=== PATIENT | female | born 1965 | race Caucasian/White ===

== ENCOUNTER 2016-02-26 12:47 | Emergency (ER) | payer OTHER ==
--- NOTE | 2016-02-26 13:56 | DIAGNOSTIC IMAGING REPORT ---
PROCEDURE: XR KNEE 4 VIEWS - RIGHT INDICATION: TRAUMA/INJURY TECHNIQUE: Four views. COMPARISON: None. FINDINGS: Minor spurring of the patellofemoral compartment. No fracture or suspicious osseous lesion. No effusion. IMPRESSION: 1. Minor patellofemoral compartment degenerative changes.
--- NOTE | 2016-02-26 13:58 | ED ORDER SUMMARY ---
..... Patient: ROSANA COMER OrderSheet [facility] VisitID: [id number] [address] [place] [address] 51y, F Registration Date/Time: 02/26/2016 ORDER SHEET Weight: 58.9 kg (stated) Allergies: No Known Drug Allergy GENERAL ORDERS: Ice (13:18 02/26/2016 Carole Hobson) (13:28 Andres Rodgers) Knee 4V Right Urgent (13:28 02/26/2016 Carole Hobson) ([facility] 13:39 LTapper) MEDICATION ORDERS: IV FLUIDS: ORDER SHEET NOTES: [Electronically signed by Kailee Lafleur R.N. (14:12 02/26/2016)] [Electronically signed by Dahlia Willson P.A.-C (14:23 02/26/2016)] [Electronically locked/signed by Kailee Lafleur R.N. (14:12 02/26/2016)]
--- NOTE | 2016-02-26 13:58 | ED NURSING NOTES ---
Clinical Report - Nurses [facility] [address] [place] [address] 02/26/2016 12:49 Patient: ROSANA COMER TRIAGE Triage time 13:Feb 26 2016. Acuity: LEVEL 3. Chief Complaint: CONSTIPATION and ABDOMINAL PAIN. Alert. No acute distress. ALEJANDRINA COMA SCORE: [place] Coma Scale: 15- eyes open spontaneously (4); best verbal response- oriented x 4 (5); best motor response- obeys commands (6). --13:09 Kathrine lAejo R.N. <<[facility] ENTRY-- 13:03 02/26/16. BP: 126/84. HR: 97. RR: 18. O2 saturation: 95%. Temp: 97.5 F. Pain level now 7/10. --13:09 Kathrine Alejo R.N. --END STRIKE>> Charted on wrong patient. --13:10 Kathrine Alejo R.N. Triage time 13:Feb 26 2016. Acuity: LEVEL 4. Chief Complaint: FALL. Alert. No acute distress. ALEJANDRINA COMA SCORE: Alejandrina Coma Scale: 15- eyes open spontaneously (4); best verbal response- oriented x 4 (5); best motor response- obeys commands (6). --13:30 Kathrine Alejo R.N. 13:21 02/26/16. BP: 105/51. HR: 67. RR: 18. O2 saturation: 100%. Temp: 97.8 F. Pain level now 6/10. --13:30 Kathrine Alejo R.N. Weight: 58.9 kg stated. Height/Length: 60 inches Per Patient. BMI: 25.4. --13:02 Kathrine Alejo R.N. Medications Levothyroxine Sodium Oral. --13:27 Kathrine Alejo R.N. Probiotic Oral. --13:27 Kathrine Alejo R.N. LaMICtal Oral 375mg , daily. --13:28 Kathrine Alejo R.N. CeleXA Oral 20 mg, at bedtime. --13:28 Kathrine Alejo R.N. ClonazePAM Oral 0.5 mg, as needed. --13:28 Kathrine Alejo R.N. The following entry was struck by Kathrine Alejo R.N., 13:26 (02/26/16) Reason - other. <<STRICKEN ENTRY-- PARoxetine HCl Oral (Tablet 20 mg), every HS. --13:07 Kathrine Alejo R.N. --END STRIKE>> The following entry was struck by Kathrine Alejo R.N., 13:26 (02/26/16) Reason - other. <<STRICKEN ENTRY-- Acetaminophen Oral, as needed. --13:07 Kathrine Alejo R.N. --END STRIKE>>. <<STRICKEN ENTRY-- Medication/allergy information source: the patient. --13:09 Kathrine Alejo R.N. --END STRIKE>> Charted On Wrong Patient --13:10 Kathrine Alejo R.N. Medication/allergy information source: the patient. --13:30 Kathrine Alejo R.N. Allergies No Known Drug Allergy. --13:08 Kathrine Alejo R.N. History <<STRICKEN ENTRY-- Arrived by private vehicle. Historian: patient. Primary physician ([facility]). ( No poop for 7 days. Passing Flatus, upper abdominal pain, cramping. Missed her 11:40 apt with [facility] today for same c/o, now here.). Onset. (7 days). PAST MEDICAL HX: Immunizations: up-to-date. Has not received seasonal influenza immunization. SOCIAL HX: Heavy tobacco smoker (cigarette)- less than 1 pack per day. Occasional alcohol use. History of drug use: marijuana. No infectious disease exposure. FALL RISK ASSESSMENT: Fall risk assessment completed. No fall risk identified. NUTRITIONAL RISK ASSESSMENT: The nutritional risk assessment revealed no deficiencies. FUNCTIONAL ASSESSMENT: Functional assessment: no impairments noted. LEARNING NEEDS ASSESSMENT: The learning needs assessment revealed no barriers. SKIN INTEGRITY ASSESSMENT: Skin integrity risk assessment completed. No skin integrity risk identified. --13:09 Kathrine Alejo R.N. --END STRIKE>> Charted On Wrong Patient --13:10 Kathrine Alejo R.N. Arrived by private vehicle. Historian: patient. Primary physician (Dr. Sanchez). 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 Location of injuries: left arm and right knee. This occurred just prior to arrival. Treatment PAYLOADER MACHINE OPERATOR: None. Trauma activation: Pre-hospital notification of patient arrival was not received. PAST MEDICAL HX: Immunizations: up-to-date and seasonal influenza. Last normal menstrual period- February 03. Sexual history - sexually active. No contraception. SOCIAL HX: Never smoker. No alcohol use or drug use. FALL RISK ASSESSMENT: Fall risk assessment completed. No fall risk identified. NUTRITIONAL RISK ASSESSMENT: The nutritional risk assessment revealed no deficiencies. FUNCTIONAL ASSESSMENT: Functional assessment: no impairments noted. LEARNING NEEDS ASSESSMENT: The learning needs assessment revealed no barriers. SKIN INTEGRITY ASSESSMENT: Skin integrity risk assessment completed. No skin integrity risk identified. --13:30 Kathrine Alejo R.N. PROBLEMS: Bipolar Disorder. Depression. Hypothyroidism. --13:29 Kathrine Alejo R.N. ADDITIONAL SURGERIES: The following entry was struck by Kathrine Alejo R.N., 13:29 Reason - wrong patient <<STRICKEN ENTRY-- Appendectomy. --13:06 Kathrine Alejo R.N. --END STRIKE>> The following entry was struck by Kathrine Alejo R.N., 13:29 Reason - wrong patient <<STRICKEN ENTRY-- Cholecystectomy. --13:06 Kathrine Alejo R.N. --END STRIKE>> The following entry was struck by Kathrine Alejo R.N., 13:29 Reason - wrong patient <<STRICKEN ENTRY-- Hysterectomy. --13:06 Kathrine Alejo R.N. --END STRIKE>>. Interventions <<STRICKEN ENTRY-- ID band on patient. To room. --13:09 Kathrine Alejo R.N. --END STRIKE>> Charted On Wrong Patient --13:11 Kathrine Alejo R.N. ID band on patient. To room. --13:30 Kathrine Alejo R.N. NURSING PROGRESS NOTES Cold pack applied. --13:43 Kathrine Alejo R.N. ( xray in room). --13:43 Kathrine Alejo R.N. DISPOSITION / DISCHARGE 14:05 02/26/16. Condition at departure: improved and stable. The goals identified in the patient's plan of care were met. No learning barriers present. Discharge instructions provided and reviewed with the patient. Reviewed medication(s) side effects, precautions, dosing and course information (motrin and tylenol OTC). Patient verbalized understanding. Written instructions provided in Luxembourgish. The patient was discharged home and accompanied by spouse. She left the Emergency Department ambulatory and via private vehicle. Spouse driving. FALL RISK ASSESSMENT: Fall risk assessment completed. No fall risk identified. --14:11 Kailee Lafleur R.N. 13:21 02/26/16. BP: 105/51. HR: 67. RR: 18. O2 saturation: 100%. Temp: 97.8 F. Pain level now 6/10. --14:11 Kailee Lafleur R.N. Departure time: 14:05 Feb 26 2016. --14:11 Kailee Lafleur R.N. Locked/Released at 02/26/2016 14:12 by Kailee Lafleur R.N.
--- NOTE | 2016-02-26 13:58 | ED ORDER SUMMARY ---
..... Patient: ROSANA COMER OrderSheet [facility] VisitID: [id number] [address] [place] [address] 51y, F Registration Date/Time: 02/26/2016 ORDER SHEET Weight: 58.9 kg (stated) Allergies: No Known Drug Allergy GENERAL ORDERS: Ice (13:18 02/26/2016 Carole Hobson) (13:28 Andres Rodgers) Knee 4V Right Urgent (13:28 02/26/2016 Carole Hobson) ([facility] 13:39 LTapper) MEDICATION ORDERS: IV FLUIDS: ORDER SHEET NOTES: [Electronically signed by Kailee Lafleur R.N. (14:12 02/26/2016)] [Electronically signed by Dahlia Willson P.A.-C (14:23 02/26/2016)] [Electronically locked/signed by Kailee Lafleur R.N. (14:12 02/26/2016)]
--- NOTE | 2016-02-26 13:58 | ED NURSING NOTES ---
Clinical Report - Nurses [facility] [address] [place] [address] 02/26/2016 12:49 Patient: ROSANA COMER TRIAGE Triage time 13:Feb 26 2016. Acuity: LEVEL 3. Chief Complaint: CONSTIPATION and ABDOMINAL PAIN. Alert. No acute distress. ALEJANDRINA COMA SCORE: [place] Coma Scale: 15- eyes open spontaneously (4); best verbal response- oriented x 4 (5); best motor response- obeys commands (6). --13:09 Kathrine Alejo R.N. <<[facility] ENTRY-- 13:03 02/26/16. BP: 126/84. HR: 97. RR: 18. O2 saturation: 95%. Temp: 97.5 F. Pain level now 7/10. --13:09 Kathrine Alejo R.N. --END STRIKE>> Charted on wrong patient. --13:10 Kathrine Alejo R.N. Triage time 13:Feb 26 2016. Acuity: LEVEL 4. Chief Complaint: FALL. Alert. No acute distress. ALEJANDRINA COMA SCORE: Alejandrina Coma Scale: 15- eyes open spontaneously (4); best verbal response- oriented x 4 (5); best motor response- obeys commands (6). --13:30 Kathrine Alejo R.N. 13:21 02/26/16. BP: 105/51. HR: 67. RR: 18. O2 saturation: 100%. Temp: 97.8 F. Pain level now 6/10. --13:30 Kathrine Alejo R.N. Weight: 58.9 kg stated. Height/Length: 60 inches Per Patient. BMI: 25.4. --13:02 Kathrine Alejo R.N. Medications Levothyroxine Sodium Oral. --13:27 Kathrine Alejo R.N. Probiotic Oral. --13:27 Kathrine Alejo R.N. LaMICtal Oral 375mg , daily. --13:28 Kathrine Alejo R.N. CeleXA Oral 20 mg, at bedtime. --13:28 Kathrine Alejo R.N. ClonazePAM Oral 0.5 mg, as needed. --13:28 Kathrine Alejo R.N. The following entry was struck by Kathrine Alejo R.N., 13:26 (02/26/16) Reason - other. <<STRICKEN ENTRY-- PARoxetine HCl Oral (Tablet 20 mg), every HS. --13:07 Kathrine Alejo R.N. --END STRIKE>> The following entry was struck by Kathrine Alejo R.N., 13:26 (02/26/16) Reason - other. <<STRICKEN ENTRY-- Acetaminophen Oral, as needed. --13:07 Kathrine Alejo R.N. --END STRIKE>>. <<STRICKEN ENTRY-- Medication/allergy information source: the patient. --13:09 Kathrine Alejo R.N. --END STRIKE>> Charted On Wrong Patient --13:10 Kathrine Alejo R.N. Medication/allergy information source: the patient. --13:30 Kathrine Alejo R.N. Allergies No Known Drug Allergy. --13:08 Kathrine Alejo R.N. History <<STRICKEN ENTRY-- Arrived by private vehicle. Historian: patient. Primary physician ([facility]). ( No poop for 7 days. Passing Flatus, upper abdominal pain, cramping. Missed her 11:40 apt with [facility] today for same c/o, now here.). Onset. (7 days). PAST MEDICAL HX: Immunizations: up-to-date. Has not received seasonal influenza immunization. SOCIAL HX: Heavy tobacco smoker (cigarette)- less than 1 pack per day. Occasional alcohol use. History of drug use: marijuana. No infectious disease exposure. FALL RISK ASSESSMENT: Fall risk assessment completed. No fall risk identified. NUTRITIONAL RISK ASSESSMENT: The nutritional risk assessment revealed no deficiencies. FUNCTIONAL ASSESSMENT: Functional assessment: no impairments noted. LEARNING NEEDS ASSESSMENT: The learning needs assessment revealed no barriers. SKIN INTEGRITY ASSESSMENT: Skin integrity risk assessment completed. No skin integrity risk identified. --13:09 Kathrine Alejo R.N. --END STRIKE>> Charted On Wrong Patient --13:10 Kathrine Alejo R.N. Arrived by private vehicle. Historian: patient. Primary physician (Dr. Sanchez). 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 Location of injuries: left arm and right knee. This occurred just prior to arrival. Treatment SYNCHRONIZER: None. Trauma activation: Pre-hospital notification of patient arrival was not received. PAST MEDICAL HX: Immunizations: up-to-date and seasonal influenza. Last normal menstrual period- February 03. Sexual history - sexually active. No contraception. SOCIAL HX: Never smoker. No alcohol use or drug use. FALL RISK ASSESSMENT: Fall risk assessment completed. No fall risk identified. NUTRITIONAL RISK ASSESSMENT: The nutritional risk assessment revealed no deficiencies. FUNCTIONAL ASSESSMENT: Functional assessment: no impairments noted. LEARNING NEEDS ASSESSMENT: The learning needs assessment revealed no barriers. SKIN INTEGRITY ASSESSMENT: Skin integrity risk assessment completed. No skin integrity risk identified. --13:30 Kathrine Alejo R.N. PROBLEMS: Bipolar Disorder. Depression. Hypothyroidism. --13:29 Kathrine Alejo R.N. ADDITIONAL SURGERIES: The following entry was struck by Kathrine Alejo R.N., 13:29 Reason - wrong patient <<STRICKEN ENTRY-- Appendectomy. --13:06 Kathrine Alejo R.N. --END STRIKE>> The following entry was struck by Kathrine Alejo R.N., 13:29 Reason - wrong patient <<STRICKEN ENTRY-- Cholecystectomy. --13:06 Kathrine Alejo R.N. --END STRIKE>> The following entry was struck by Kathrine Alejo R.N., 13:29 Reason - wrong patient <<STRICKEN ENTRY-- Hysterectomy. --13:06 Kathrine Alejo R.N. --END STRIKE>>. Interventions <<STRICKEN ENTRY-- ID band on patient. To room. --13:09 Kathrine Alejo R.N. --END STRIKE>> Charted On Wrong Patient --13:11 Kathrine Alejo R.N. ID band on patient. To room. --13:30 Kathrine Alejo R.N. NURSING PROGRESS NOTES Cold pack applied. --13:43 Kathrine Alejo R.N. ( xray in room). --13:43 Kathrine Alejo R.N. DISPOSITION / DISCHARGE 14:05 02/26/16. Condition at departure: improved and stable. The goals identified in the patient's plan of care were met. No learning barriers present. Discharge instructions provided and reviewed with the patient. Reviewed medication(s) side effects, precautions, dosing and course information (motrin and tylenol OTC). Patient verbalized understanding. Written instructions provided in [place]. The patient was discharged home and accompanied by spouse. She left the Emergency Department ambulatory and via private vehicle. Spouse driving. FALL RISK ASSESSMENT: Fall risk assessment completed. No fall risk identified. --14:11 Kailee Lafleur R.N. 13:21 02/26/16. BP: 105/51. HR: 67. RR: 18. O2 saturation: 100%. Temp: 97.8 F. Pain level now 6/10. --14:11 Kailee Lafleur R.N. Departure time: 14:05 Feb 26 2016. --14:11 Kailee Lafleur R.N. Locked/Released at 02/26/2016 14:12 by Kailee Lafleur R.N.
--- NOTE | 2016-02-26 13:58 | ED CLINICAL REPORT ---
Clinical Report - Physicians/Mid Levels [facility] [address] [place] [address] 02/26/2016 12:49 Patient: ROSANA COMER Time Seen: 13:29 Feb 26 2016. Arrived- By private vehicle. Historian- patient (). HISTORY OF PRESENT ILLNESS Chief Complaint: FALL. Location of injuries- right knee and left arm (patient tripped over a step stool at work today and fell onto her left bicep). The injury occurred just prior to arrival. Fell. No fainting episodes. Occurred at work. The patient complains of mild pain. No blow to the head, neck pain or loss of consciousness. Not dazed. (patient reports falling with knee first against an object, and then left bicep into a table, and twisting her back.). REVIEW OF SYSTEMS No loss of vision or hearing loss. All systems otherwise negative, except as recorded above. SOCIAL HISTORY Never smoker. No drug use. ADDITIONAL NOTES The nursing notes have been reviewed. PHYSICAL EXAM Vital Signs: 02/26/2016 13:21 BP: 105/51. HR: 67. RR: 18. O2 saturation: 100%. Temp: 97.8 F. Appearance: Alert. No acute distress. ENT: No hemotympanum. Neck: Painless ROM. Non-tender. Posterior neck: No tenderness or swelling. CVS: Heart sounds normal. Pulses normal. Respiratory: Breath sounds normal. Chest nontender. No chest wall injury or decreased breath sounds. Back: No tenderness. No tenderness. Skin: Skin intact. Skin warm. Extremities: Left shoulder. No tenderness or swelling. Left arm: mild tenderness and medium sized ecchymosis. Neurovascular intact distally. No swelling, laceration, foreign body or deformity. Left elbow. No tenderness. Left forearm. Right thigh. No tenderness or laceration. Right knee: tenderness and small ecchymosis located in the patella. No erythema, swelling, laceration, foreign body or deformity. Right leg. No tenderness. Neuro: Alejandrina Coma Scale: 15- eyes open spontaneously (4); best verbal response- oriented x 3 (5); best motor response- obeys commands (6). Oriented X 3. No motor deficit. LABS, X-RAYS, AND EKG Rt Knee X-ray: (IMPRESSION: 1. Minor patellofemoral compartment degenerative changes. Electronically Final signed by:Phuc Reed MD 02/26/2016 1:56:00 PM). PROGRESS AND PROCEDURES Course of Care: He was small knee abrasion, most consistent with contusion otherwise no underlying fracture. A left bicep with signs of ecchymosis, full range of motion, no osseous tenderness. Good distal sensation, no signs of secondary infectious process. Mechanical cause of fall. No further acute workup for this. No injury to the head or neck, no midline tenderness of the back. Patient is stable. Symptoms better. Patient/family counseled. Disposition: Discharged. CLINICAL IMPRESSION Muscle strain of the low back. Contusion to the right knee and left upper arm. INSTRUCTIONS Apply ice. You may walk and bear weight as tolerated. (heat/ ice to back ice to knee/ and to left upper arm). OTC Medications: Take OTC medications according to label instructions. Available over the counter. Acetaminophen (available over the counter): take according to label instructions. Motrin IB 200 mg (available over the counter): take 4 orally every 8 hours for 5 days, as needed for pain Follow-up: Follow up with your doctor in four days. (Electronically signed by Dahlia Willson P.A.-C 02/26/2016 14:23)
--- NOTE | 2016-02-26 14:23 | ED MED RECONCILIATION SUMMARY ---
Patient: ROSANA COMER Medication Reconciliation Report [facility] VisitID: [id number] [address] [place] [address] 51y, F Registration Date/Time: 02/26/2016 Weight: 58.9 kg Height/Length: 60 in. BMI: 25.4 ALLERGIES: No Known Drug Allergy The patient's Home Medications are listed below: THE FOLLOWING MEDICATIONS NEED TO BE RECONCILED: CeleXA Oral 20 mg, at bedtime ClonazePAM Oral 0.5 mg LaMICtal Oral 375mg , daily Levothyroxine Sodium Oral Probiotic Oral The source(s) of the original Home Medication information: patient The following Medications were given to the patient in the Emergency Department: None. The following Medications were prescribed to the patient: Take OTC medications according to label instructions. Available over the counter. -- Dahlia Willson, P.A.-C Acetaminophen (available over the counter): take according to label instructions. -- Dahlia Willson, P.A.-C Motrin IB 200 mg (available over the counter): take 4 orally every 8 hours for 5 days, as needed for pain -- Dahlia Willson, P.A.-C
--- NOTE | 2016-02-26 14:23 | ED MED RECONCILIATION SUMMARY ---
Patient: ROSANA COMER Medication Reconciliation Report [facility] VisitID: [id number] [address] [place] [address] 51y, F Registration Date/Time: 02/26/2016 Weight: 58.9 kg Height/Length: 60 in. BMI: 25.4 ALLERGIES: No Known Drug Allergy The patient's Home Medications are listed below: THE FOLLOWING MEDICATIONS NEED TO BE RECONCILED: CeleXA Oral 20 mg, at bedtime ClonazePAM Oral 0.5 mg LaMICtal Oral 375mg , daily Levothyroxine Sodium Oral Probiotic Oral The source(s) of the original Home Medication information: patient The following Medications were given to the patient in the Emergency Department: None. The following Medications were prescribed to the patient: Take OTC medications according to label instructions. Available over the counter. -- Dahlia Willson, P.A.-C Acetaminophen (available over the counter): take according to label instructions. -- Dahlia Willson, P.A.-C Motrin IB 200 mg (available over the counter): take 4 orally every 8 hours for 5 days, as needed for pain -- Dahlia Willson, P.A.-C
--- NOTE | 2016-02-26 14:23 | ED DISCHARGE INSTRUCTIONS ---
Patient: ROSANA COMER General Instructions [facility] VisitID: [id number] [place] [address] 51y, F Registration Date/Time: 02/26/2016 Muscle strain of the low back. Contusion to the right knee and left upper arm. INSTRUCTIONS Apply ice. You may walk and bear weight as tolerated. (heat/ ice to back ice to knee/ and to left upper arm). OTC Medications: Take OTC medications according to label instructions. Available over the counter. Acetaminophen (available over the counter): take according to label instructions. Motrin IB 200 mg (available over the counter): take 4 orally every 8 hours for 5 days, as needed for pain Follow-up: Follow up with your doctor in four days. ADDITIONAL INFORMATION Back Pain [Acute Or Chronic] Back pain is usually caused by an injury to the muscles or ligaments of the spine. Sometimes the disks that separate each bone in the spine may bulge and cause pain by pressing on a nearby nerve. Back pain may also appear after a sudden twisting/bending force (such as in a car accident), after a simple awkward movement, or lifting something heavy with poor body positioning. In either case, muscle spasm is often present and adds to the pain. Acute back pain usually gets better in one to two weeks. Back pain related to disk disease, arthritis in the spinal joints or spinal stenosis (narrowing of the spinal canal) can become chronic and last for months or years. Unless you had a physical injury (for example, a car accident or fall) X-rays are usually not ordered for the initial evaluation of back pain. If pain continues and does not respond to medical treatment, x-rays and other tests may be performed at a later time. Home Care: You may need to stay in bed the first few days. But, as soon as possible, begin sitting or walking to avoid problems with prolonged bed rest (muscle weakness, worsening back stiffness and pain, blood clots in the legs). When in bed, try to find a position of comfort. A firm mattress is best. Try lying flat on your back with pillows under your knees. You can also try lying on your side with your knees bent up towards your chest and a pillow between your knees. Avoid prolonged sitting. This puts more stress on the lower back than standing or walking. During the first two days after injury, apply an ICE PACK to the painful area for 20 minutes every 2-4 hours. This will reduce swelling and pain. HEAT (hot shower, hot bath or heating pad) works well for muscle spasm. You can start with ice, then switch to heat after two days. Some patients feel best alternating ice and heat treatments. Use the one method that feels the best to you. You may use acetaminophen (Tylenol) or ibuprofen (Motrin, Advil) to control pain, unless another pain medicine was prescribed. [NOTE: If you have chronic liver or kidney disease or ever had a stomach ulcer or GI bleeding, talk with your doctor before using these medicines.] Be aware of safe lifting methods and do not lift anything over 15 pounds until all the pain is gone. Follow Up with your doctor or this facility if your symptoms do not start to improve after one week. Physical therapy may be needed. [NOTE: If X-rays were taken, they will be reviewed by a radiologist. You will be notified of any new findings that may affect your care.] Get Prompt Medical Attention if any of the following occur: Pain becomes worse or spreads to your legs Weakness or numbness in one or both legs Loss of bowel or bladder control Numbness in the groin or genital area Contusion,Soft Tissue You have a CONTUSION, which is a bruise with swelling and some bleeding under the skin. There are no broken bones. This injury takes a few days to a few weeks to heal. Home Care: 1) Keep the injured part elevated to reduce pain and swelling. This is especially important during the first 48 hours. 2) Make an ice pack (ice cubes in a plastic bag, wrapped in a towel) and apply for 20 minutes every 1-2 hours the first day. Continue this 3-4 times a day until the pain and swelling goes away. 3) You may use acetaminophen (Tylenol) or ibuprofen (Motrin, Advil) to control pain, unless another pain medicine was prescribed. [ NOTE : If you have chronic liver or kidney disease or ever had a stomach ulcer or GI bleeding, talk with your doctor before using these medicines.] Follow Up with your doctor or this facility if you are not improving within the next THREE days. [NOTE: If X-rays were taken, they will be reviewed by a radiologist. You will be notified of any new findings that may affect your care.] Get Prompt Medical Attention if any of the following occur: -- Pain or swelling increases -- Injured arm or leg becomes cold, blue, numb or tingly -- Redness, warmth or drainage from the skin Contusion:Upper Extremity You have a contusion of your upper extremity (arm, wrist, hand or fingers). This causes local pain, swelling and sometimes bruising. There are no broken bones. This injury takes a few days to a few weeks to heal. A sling may be provided for comfort and arm support. Home Care: 1) Keep your arm elevated to reduce pain and swelling. This is very important during the first 48 hours. 2) Apply an ice pack (ice cubes in a plastic bag, wrapped in a towel) over the injured area for 20 minutes every 1-2 hours the first day for pain relief. Continue this 3-4 times a day until the pain and swelling goes away. 3) You may use acetaminophen (Tylenol) or ibuprofen (Motrin, Advil) to control pain, unless another pain medicine was prescribed. [ NOTE : If you have chronic liver or kidney disease or ever had a stomach ulcer or GI bleeding, talk with your doctor before using these medicines.] 4) If a sling was provided, you may remove it to shower or bathe. Do not wear it for more than one week or it may cause joint stiffness. Follow Up with your doctor or this facility if you are not starting to improve within the next THREE days. [NOTE: If X-rays were taken, they will be reviewed by a radiologist. You will be notified of any new findings that may affect your care.] Get Prompt Medical Attention if any of the following occur: -- Pain or swelling increases -- Redness, warmth or drainage -- Hand or fingers becomes cold, blue, numb or tingly Contusion:Lower Extremity You have a CONTUSION of your LOWER extremity (leg, knee, ankle, foot, or toes). This causes local pain, swelling and sometimes bruising. There are no broken bones. This injury may take from a few days to a few weeks to heal. Home Care: 1) Keep your leg elevated to reduce pain and swelling. When sleeping, place a pillow under the injured leg. When sitting, support the injured leg so it is level with your waist. This is very important during the first 48 hours. 2) If CRUTCHES have been advised, do not bear full weight on the injured leg until you can do so without pain. You may return to sports when you are able to hop and run on the injured leg without pain. 3) Apply an ice pack (ice cubes in a plastic bag, wrapped in a towel) over the injured area for 20 minutes every 1-2 hours the first day for pain relief. Continue this 3-4 times a day until the pain and swelling goes away. 4) You may use acetaminophen (Tylenol) or ibuprofen (Motrin, Advil) to control pain, unless another pain medicine was prescribed. [ NOTE : If you have chronic liver or kidney disease or ever had a stomach ulcer or GI bleeding, talk with your doctor before using these medicines.] Follow Up with your doctor or this facility if you are not starting to improve within the next THREE days. [NOTE: If X-rays were taken, they will be reviewed by a radiologist. You will be notified of any new findings that may affect your care.] Get Prompt Medical Attention if any of the following occur: -- Pain or swelling increases -- Toes become cold, blue, numb or tingly -- Redness, warmth or drainage from the skin Ibuprofen Oral tablet What is this medicine? IBUPROFEN (eye BYOO proe fen) is a non-steroidal anti-inflammatory drug (NSAID). It is used for dental pain, fever, headaches or migraines, osteoarthritis, rheumatoid arthritis, or painful monthly periods. It can also relieve minor aches and pains caused by a cold, flu, or sore throat. How should I use this medicine? Take this medicine by mouth with a glass of water. Follow the directions on the prescription label. Take this medicine with food if your stomach gets upset. Try to not lie down for at least 10 minutes after you take the medicine. Take your medicine at regular intervals. Do not take your medicine more often than directed. A special MedGuide will be given to you by the pharmacist with each prescription and refill. Be sure to read this information carefully each time. Talk to your manager foreign regarding the use of this medicine in children. Special care may be needed. What side effects may I notice from receiving this medicine? Side effects that you should report to your doctor or health care team assistant as soon as possible: allergic reactions like skin rash, itching or hives, swelling of the face, lips, or tongue black or bloody stools, blood in the urine or in vomit breathing problems changes in vision chest pain general ill feeling or flu-like symptoms nausea or vomiting redness, blistering, peeling or loosening of the skin, including inside the mouth slurred speech or weakness on one side of the body stomach pain unexplained weight gain or swelling unusually weak or tired yellowing of eyes or skin Side effects that usually do not require medical attention (report to your doctor or health care team assistant if they continue or are bothersome): constipation or diarrhea dizziness gas or heartburn stomach upset What may interact with this medicine? Do not take this medicine with any of the following medications: cidofovir ketorolac methotrexate pemetrexed This medicine may also interact with the following medications: alcohol aspirin diuretics lithium other drugs for inflammation like prednisone warfarin What if I miss a dose? If you miss a dose, take it as soon as you can. If it is almost time for your next dose, take only that dose. Do not take double or extra doses. Where should I keep my medicine? Keep out of the reach of children. Store at room temperature between 15 and 30 degrees C (59 and 86 degrees F). Keep container tightly closed. Throw away any unused medicine after the expiration date. What should I tell my health care provider before I take this medicine? They need to know if you have any of these conditions: asthma cigarette smoker drink more than 3 alcohol containing drinks a day heart disease or circulation problems such as heart failure or leg edema (fluid retention) high blood pressure kidney disease liver disease stomach bleeding or ulcers an unusual or allergic reaction to ibuprofen, aspirin, other NSAIDS, other medicines, foods, dyes, or preservatives or trying to get breast-feeding What should I watch for while using this medicine? Tell your doctor or healthcare professional if your symptoms do not start to get better or if they get worse. This medicine does not prevent heart attack or stroke. In fact, this medicine may increase the chance of a heart attack or stroke. The chance may increase with longer use of this medicine and in people who have heart disease. If you take aspirin to prevent heart attack or stroke, talk with your doctor or health care team assistant. Do not take other medicines that contain aspirin, ibuprofen, or naproxen with this medicine. Side effects such as stomach upset, nausea, or ulcers may be more likely to occur. Many medicines available without a prescription should not be taken with this medicine. This medicine can cause ulcers and bleeding in the stomach and intestines at any time during treatment. Ulcers and bleeding can happen without warning symptoms and can cause . To reduce your risk, do not smoke cigarettes or drink alcohol while you are taking this medicine. You may get drowsy or dizzy. Do not drive, use machinery, or do anything that needs mental alertness until you know how this medicine affects you. Do not stand or sit up quickly, especially if you are an older patient. This reduces the risk of dizzy or fainting spells. This medicine can cause you to bleed more easily. Try to avoid damage to your teeth and gums when you brush or floss your teeth. You have been given the following additional information: Back Pain (Acute Or Chronic) Contusion, Soft Tissue Contusion, Upper Extremity Contusion, Lower Extremity Ibuprofen Oral tablet You may walk and bear weight as tolerated. (Electronically signed by Dahlia Willson P.A.-C 02/26/2016 14:23)
--- NOTE | 2016-02-26 14:23 | ED MAR SUMMARY ---
..... Medication Administration Record [facility] [address] [place], [place] [id number] Patient: ROSANA COMER Visit ID: [id number] 51y, F Weight: 58.9 kg Height/Length: 60 in BMI: 25.4 ALLERGIES: No Known Drug Allergy
--- NOTE | 2016-02-26 14:23 | ED MAR SUMMARY ---
..... Medication Administration Record [facility] [address] [place], [place] [id number] Patient: ROSANA COMER Visit ID: [id number] 51y, F Weight: 58.9 kg Height/Length: 60 in BMI: 25.4 ALLERGIES: No Known Drug Allergy
== END 2016-02-26 14:05 | disposition home or self-care (01) ==
LOC: ED SRH 12:47
DX: S39.012A Strain of muscle, fascia and tendon of lower back, initial encounter (principal); S80.01XA Contusion of right knee, initial encounter; S40.022A Contusion of left upper arm, initial encounter; W01.10XA Fall on same level from slipping, tripping and stumbling with subsequent striking against unspecified object, initial encounter; Y93.9 Activity, unspecified; Y92.9 Unspecified place or not applicable; Y99.0 Civilian activity done for income or pay